=== PATIENT | female | born 1950 | race Caucasian/White ===

== ENCOUNTER → 2017-03-26 | Outpatient (CLI) | payer MEDICARE, OTHER ==
--- NOTE | 2017-03-26 12:00 | REP ---
DIGITAL SCREENING BILATERAL MAMMOGRAPHY WITH CAD: Comparison mammography October 09, 2011, May 05, 2008, and May 03, 2005. MAMMOGRAPHIC FINDINGS: There is a stable nodular opacity projecting in the inferior aspect of the right breast entirely unchanged from studies dating back to 2004. This felt to be benign. Moderate scattered fibroglandular elements are seen bilaterally. No worrisome skin change is seen. On the left, there is a new grouping of amorphous microcalcifications projecting in a rounded distribution focally in the upper outer quadrant of the left breast. These are new and merits further evaluation. On the MLO view there is a suggestion that the may be milk of calcium benign calcifications. Diagnostic imaging is recommended however. The left breast is otherwise unremarkable. IMPRESSION: BIRADS category 0 incomplete breast imaging. New grouping of calcifications in the upper outer quadrant of the left breast. These may be "milk of calcium" type benign calcifications. Diagnostic left breast mammography with true ML horizontal beam imaging recommended. BI-RADS/ACR category 0 mammogram, incomplete. Additional imaging and/or prior images are needed before a final assessment can be assigned. This mammogram was interpreted with the aid of an FDA-approved computer-aided detection system. The patient states she/he had a clinical breast exam in March 2017. The patient letter being requested is M0.
== END ==
LOC: M WHC 09:08
PROVIDERS: ATTEND Internal Medicine
DX: Z12.31 Encounter for screening mammogram for malignant neoplasm of breast (principal); R92.8 Other abnormal and inconclusive findings on diagnostic imaging of breast; R92.0 Mammographic microcalcification found on diagnostic imaging of breast; N63 Unspecified lump in breast

== ENCOUNTER → 2017-03-27 | Outpatient (CLI) | payer MEDICARE, OTHER ==
--- NOTE | 2017-03-27 16:30 | REP ---
Digital diagnostic unilateral left breast mammography with CAD: History: Screening mammography from the previous day was BIRADS category zero for a grouping of upper outer quadrant calcifications on the left. Comparison is made with prior study from 10/09/2011. Mammographic findings: Magnified focal spot compression CC MLO and true MLO views of the left breast are obtained along with a nonmagnified true MLO view of the left breast. The grouping of microcalcifications seen on yesterday's screening mammography is again noted in the upper outer quadrant. There are numerous calcifications occupying an area spanning only approximately 5 mm. On horizontal beam images these appear to show a meniscus or tea cup configuration compatible with benign type milk of calcium intracystic calcification. No other suspicious finding. Impression: BIRADS category II benign left breast mammography. Bilateral annual screening mammography recommended. This mammogram was interpreted with the aid of an FDA-approved computer-aided detection system. The patient states she had a clinical breast exam in March 2017 The patient letter being requested is M1. Signed by Brad Zavaleta MD 03/27/2017 05:00 P
== END ==
LOC: M RAD 14:15
PROVIDERS: ATTEND Internal Medicine
DX: R92.8 Other abnormal and inconclusive findings on diagnostic imaging of breast (principal); R92.0 Mammographic microcalcification found on diagnostic imaging of breast; R92.1 Mammographic calcification found on diagnostic imaging of breast

== ENCOUNTER → 2018-03-18 | Outpatient (REF) | payer MEDICARE, OTHER ==
[2018-03-18 13:50] LABS: C REACTIVE PROTEIN QUANTITATIV < 0.30 MG/DL (0.00-0.30)
[2018-03-18 13:50] LABS: RHEUMATOID FACTOR QUANT < 10.0 IU/ML (<15.0)
[2018-03-21 00:08] LABS: ANTINUCLEAR ANTIBODIES DIRECT Negative (Negative)
[2018-03-21 00:08] LABS: CYCLIC CITRULLINATED PEPTIDE 5 units (0-19)
== END ==
LOC: M LAB REF 13:30
DX: M79.1 Myalgia (principal)
CPT/HCPCS: 86140

== ENCOUNTER → 2018-04-01 | Outpatient (CLI) | payer MEDICARE, OTHER | LOC: M WHC 10:05 | DX: Z12.31 Encounter for screening mammogram for malignant neoplasm of breast (principal); R92.1 Mammographic calcification found on diagnostic imaging of breast; M85.851 Other specified disorders of bone density and structure, right thigh; M85.852 Other specified disorders of bone density and structure, left thigh; M85.88 Other specified disorders of bone density and structure, other site | CPT/HCPCS: 77067 ==

== ENCOUNTER → 2021-03-15 | Outpatient (CLI) | payer MEDICARE, OTHER ==
--- NOTE | 2021-03-15 16:21 | REP ---
INDICATION: RT HAND PAIN. COMPARISON: None. TECHNIQUE: Four views FINDINGS: There is advanced asymmetric distal interphalangeal joint space narrowing seen involving the 2nd and 3rd digits with lateral subluxation of the DIP joint of the 3rd digit. More moderate disc space narrowing is seen involving the DIP joints of digits 4 and 5 and all interphalangeal joints. Small marginal erosions are seen involving the DIP joints of digits 2 and 3. There is some evidence of periarticular osteopenia. There is no acute fracture. Degenerative changes seen involving the 1st carpometacarpal joint space. IMPRESSION: Chronic changes as described above. <Electronically signed by Jemal Allen > 03/15/21 3021
== END ==
LOC: M PLAIMG 14:59
PROVIDERS: ATTEND Internal Medicine
DX: M25.541 Pain in joints of right hand (principal)

== ENCOUNTER → 2024-03-16 | Outpatient (REF) | payer MEDICARE, OTHER ==
[2024-03-16 13:53] LABS: C REACTIVE PROTEIN QUANTITATIV < 0.40 MG/DL (<1.0); LDH LACTATE DEHYDROGENASE 209 U/L (120-246)
[2024-03-16 13:57] LABS: VITAMIN B12 LEVEL 578 PG/ML (211-911)
[2024-03-17 13:56] LABS: ANA SCREEN, IFA NEGATIVE (NEGATIVE)
[2024-03-17 23:08] LABS: CK 1 (BB) 0 % (0); CK 2 (MB) 0 % (0-3); CK 3 (MM) 100 % (97-100); CK MACRO I PERCENT 0 % (Not Observed); CK MACRO II PERCENT 0 % (Not Observed); CK TOTAL 199 U/L (32-182)
[2024-03-19 21:18] LABS: LYME TOTAL ANTIBODY CIA <= 0.90 Index (<=0.90)
== END ==
LOC: M LAB REF 12:58
PROVIDERS: ATTEND Internal Medicine
DX: R74.8 Abnormal levels of other serum enzymes (principal); G50.0 Trigeminal neuralgia; G62.9 Polyneuropathy, unspecified